=== PATIENT | male | born 1990 | race Caucasian/White ===

== ENCOUNTER → 2018-10-21 | Outpatient (CLI) | payer OTHER ==
--- NOTE | 2018-10-21 17:27 | RAD ---
Three-view lumbar spine series Clinical indications: Severe back pain after helping work load on a truck. FINDINGS: The transverse processes are intact. No compression fracture discitis or osteolytic process is seen. No anterolisthesis is seen. Minimal scoliotic curvature is seen. No significant degenerative disc space narrowing or endplate spurring is seen throughout the lumbar spine. IMPRESSION: No acute osseous abnormality. Electronically signed by: Kevin Garzon MD (10/21/2018 5:23 PM) [place] [id number]
== END | disposition home or self-care (01) ==
LOC: RAD 15:18
PROVIDERS: ATTEND Physical Medicine & Rehabilitation
DX: S39.92XA Unspecified injury of lower back, initial encounter (principal); X58.XXXA Exposure to other specified factors, initial encounter; Y93.89 Activity, other specified; Y92.89 Other specified places as the place of occurrence of the external cause; Y99.8 Other external cause status
CPT/HCPCS: 72100